=== PATIENT | female | born 1980 | race African-American/Black ===

== ENCOUNTER 2018-08-04 00:41 | Emergency (ER) | payer OTHER ==
[~2018-08-04] VITALS: Ht 160 cm; Wt 54.4 kg
[2018-08-04] MEDS ORDERED: NOHOMEMEDICATIONS (00:51)
[2018-08-04] MEDS ORDERED: AMOXICILLIN875 MG PO (02:30)
[2018-08-04 02:39] VITALS: BP 131/87
== END 2018-08-04 02:40 | disposition home or self-care (01) ==
LOC: ER 00:41
DX: H66.92 Otitis media, unspecified, left ear (principal)